=== PATIENT | female | born 1970 | race Hispanic/Latino ===

== ENCOUNTER 2018-07-27 18:26 | Emergency (ER) | payer BC, MEDICAID ==
[2018-07-27] MEDS ORDERED: KETOROLAC TROMETHAMINE 30MG/ML ONE (19:47)
== END 2018-07-27 20:14 | disposition home or self-care (01) ==
LOC: EDH 18:26
DX: S16.1XXA Strain of muscle, fascia and tendon at neck level, initial encounter (principal); S09.8XXA Other specified injuries of head, initial encounter; I10 Essential (primary) hypertension; E11.9 Type 2 diabetes mellitus without complications; V79.49XA Driver of bus injured in collision with other motor vehicles in traffic accident, initial encounter; Y93.89 Activity, other specified; Y92.89 Other specified places as the place of occurrence of the external cause; Y99.8 Other external cause status
CPT/HCPCS: 70450; 72125; 96372; 99284; J1885